=== PATIENT | male | born 1935 | race Caucasian/White ===

== ENCOUNTER 2020-06-18 10:45 | Inpatient (IN) | payer OTHER, MEDICARE, BC ==
[~2020-06-18] VITALS: Ht 185.4 cm; Wt 87.1 kg
[~2020-06-18 10:45] MED LIST: NO HOME MEDS
--- NOTE | 2020-06-18 11:35 | NUR ---
clarrified with anupam casanova shd we order acs protocol for pt for c/o chest pain as per charge anupam do ekg and then provider can decide when he see the pt.pt ekg already done and checked.
[2020-06-18 12:20] LABS: BASOPHILS # (AUTO) 0.1 X10'3 (0-0.2); BASOPHILS % (AUTO) 0.8 % (0-1); EOSINOPHILS # (AUTO) 0.1 X10'3 (0-0.9); EOSINOPHILS % (AUTO) 0.9 % (0-6); HEMATOCRIT 41.8 % (42.0-52.0); LYMPHOCYTES # (AUTO) 1.2 X10'3 (1.1-4.8); LYMPHOCYTES % (AUTO) 14.4 % (21-51); MEAN CORPUSCULAR HEMOGLOBIN 30.6 PG (27.0-31.0); MEAN CORPUSCULAR HGB CONC 33.6 g/dL (33.0-36.5); MEAN CORPUSCULAR VOLUME 90.9 FL (78-98); MEAN PLATELET VOLUME 8.2 FL (7.4-10.4); MONOCYTES # (AUTO) 0.8 X10'3 (0-0.9); MONOCYTES % (AUTO) 8.8 % (2-12); NEUTROPHILS # (AUTO) 6.5 X10'3 (1.8-7.7); NEUTROPHILS % (AUTO) 75.1 % (42-75); PLATELET COUNT 272 X10'3 (140-440); RED BLOOD COUNT 4.59 X10'6 (4.70-6.10); RED CELL DISTRIBUTION WIDTH 12.8 % (11.5-14.5); WHITE BLOOD COUNT 8.6 X10'3 (4.5-11.0)
[2020-06-18 12:40] LABS: ALANINE AMINOTRANSFERASE 33 U/L (12-78); ALBUMIN 3.8 G/DL (3.4-5.0); ALBUMIN/GLOBULIN RATIO 1.2 (1.1-1.5); ALKALINE PHOSPHATASE 60 IU/L (46-116); ANION GAP 7 (8-16); ASPARTATE AMINO TRANSFERASE 20 U/L (10-37); BILIRUBIN,TOTAL 0.4 MG/DL (0.1-1.0); BLOOD UREA NITROGEN 12 MG/DL (7-18); BUN/CREATININE RATIO 13.3 (5.4-32.0); CALCIUM 8.9 MG/DL (8.5-10.1); CHLORIDE 106 MMOL/L (99-107); GLUCOSE 98 MG/DL (70-104); POTASSIUM 4.5 MMOL/L (3.5-5.1); SODIUM 140 MMOL/L (135-145); TOTAL CARBON DIOXIDE 26.8 MMOL/L (24-32); eGFR 80 ML/MIN
[2020-06-18 12:45] LABS: CLARITY,URINE CLEAR (Clear); COLOR,URINE STRAW (Yellow); GLUCOSE, URINE NEGATIVE (Neg); KETONES,URINE NEGATIVE (Neg); LEUKOCYTE ESTERASE ,URINE NEGATIVE (Neg); NITRITES, URINE NEGATIVE (Neg); OCCULT BLOOD,URINE NEGATIVE (Neg); PROTEIN,URINE NEGATIVE (Neg); UA COLLECTION TYPE VOIDED; UROBILINOGEN,URINE 0.2 E.U/dL (0.2-1.0)
[2020-06-18] MEDS ORDERED: magnesium hydroxide 30ml (MOM) UD suspension PO PRN (13:20)
[2020-06-18] MEDS ORDERED: acetaminophen 325mg tablet PO PRN ×2 (13:20)
[2020-06-18] MEDS ORDERED: morphine 2 MG/ML inj. syringe IV PRN ×2 (13:20)
[2020-06-18] MEDS ORDERED: ondansetron/PF 4mg/2ml inj IV PRN (13:20)
[2020-06-18] MEDS ORDERED: mag hydrox/Alum hydrox/simeth 30ml oral suspension PO PRN (13:20)
--- NOTE | 2020-06-18 16:14 | NUR ---
PT RESTING IN BED WAITING FOR IN PT ROOM ASSISGNMENT ,NO DISTRESS NOTED ,WILL CONT TO MONITOR.
--- NOTE | 2020-06-18 17:59 | NUR ---
Patient arrived fro ED at 1755 took vitals 165/90 HR 67 O2 96 Temp 98.0 RR 16 Pain 0, Patient never been in hospital before and a little nervous. Will continue to monitor.
[2020-06-18 18:01] VITALS: BP 165/90
--- NOTE | 2020-06-18 18:38 | NUR ---
Problems reprioritized. Patient report given, questions answered & plan of care reviewed with Vianey.
[2020-06-18 22:00] VITALS: BP_SYST 108; BP_SYST 111; BP_DIAS 59; BP_DIAS 63; BP_DIAS 80
[2020-06-19 06:00] VITALS: BP 116/67
--- NOTE | 2020-06-19 06:42 | NUR ---
Patient in room ORTHO 4021. I have received report from Vianey ELIZABETH and had the opportunity to ask questions and assume patient care.
[2020-06-19 06:52] LABS: BASOPHILS # (AUTO) 0.1 X10'3 (0-0.2); BASOPHILS % (AUTO) 0.9 % (0-1); EOSINOPHILS # (AUTO) 0.2 X10'3 (0-0.9); HEMOGLOBIN 13.3 g/dl (14.0-17.9); LYMPHOCYTES # (AUTO) 1.8 X10'3 (1.1-4.8); LYMPHOCYTES % (AUTO) 23.6 % (21-51); MEAN CORPUSCULAR HGB CONC 34.1 g/dL (33.0-36.5); MEAN CORPUSCULAR VOLUME 90.8 FL (78-98); MEAN PLATELET VOLUME 8.6 FL (7.4-10.4); MONOCYTES # (AUTO) 0.8 X10'3 (0-0.9); MONOCYTES % (AUTO) 11.1 % (2-12); NEUTROPHILS # (AUTO) 4.6 X10'3 (1.8-7.7); NEUTROPHILS % (AUTO) 61.4 % (42-75); PLATELET COUNT 247 X10'3 (140-440); RED CELL DISTRIBUTION WIDTH 12.8 % (11.5-14.5); WHITE BLOOD COUNT 7.5 X10'3 (4.5-11.0)
[2020-06-19 07:09] LABS: ALBUMIN 3.3 G/DL (3.4-5.0); ANION GAP 8 (8-16); BLOOD UREA NITROGEN 12 MG/DL (7-18); CHLORIDE 107 MMOL/L (99-107); GLUCOSE 96 MG/DL (70-104); POTASSIUM 4.3 MMOL/L (3.5-5.1); SODIUM 142 MMOL/L (135-145); TOTAL CARBON DIOXIDE 27.4 MMOL/L (24-32); eGFR 71 ML/MIN
[2020-06-19 10:00] VITALS: BP 129/73
--- NOTE | 2020-06-19 12:34 | NUR ---
PAGER ID: [phone] MESSAGE: [phone] Bernabe Henderson The patient will need and order with the specific need send over to Dr. Severino office to mixing picker tender the heart monitor. Lor [id number]
[2020-06-19 13:48] VITALS: BP_SYST 125; BP_SYST 129; BP_SYST 140; BP_DIAS 69; BP_DIAS 73; BP_DIAS 76
== END 2020-06-19 15:00 | disposition home or self-care (01) | DRG 312 ==
LOC: ER 10:46 → ED HOLD 13:16 → ORTHO 4S 18:40
PROVIDERS: ADMIT Internal Medicine; ATTEND Internal Medicine
DX: R55 Syncope and collapse (principal); R07.9 Chest pain, unspecified
CPT/HCPCS: 36415; 71045; 80048; 80053; 81003; 82948; 83880; 85025; 87081; 93005; 99285; G0378

== ENCOUNTER 2020-07-10 17:04 | Emergency (ER) | payer OTHER, MEDICARE, BC ==
[~2020-07-10] VITALS: Ht 188 cm; Wt 97.5 kg
[2020-07-10 17:50] VITALS: BP 108/73
[2020-07-10 18:30] LABS: RED BLOOD COUNT 4.73 X10'6 (4.70-6.10)
[2020-07-10 18:31] LABS: BASOPHILS % (AUTO) 0.5 % (0-1); EOSINOPHILS # (AUTO) 0.1 X10'3 (0-0.9); EOSINOPHILS % (AUTO) 1.4 % (0-6); HEMOGLOBIN 14.5 g/dl (14.0-17.9); LYMPHOCYTES # (AUTO) 1.4 X10'3 (1.1-4.8); LYMPHOCYTES % (AUTO) 15.2 % (21-51); MEAN CORPUSCULAR HEMOGLOBIN 30.7 PG (27.0-31.0); MEAN CORPUSCULAR HGB CONC 33.8 g/dL (33.0-36.5); MEAN CORPUSCULAR VOLUME 90.9 FL (78-98); MEAN PLATELET VOLUME 8.8 FL (7.4-10.4); MONOCYTES # (AUTO) 0.9 X10'3 (0-0.9); MONOCYTES % (AUTO) 9.7 % (2-12); NEUTROPHILS # (AUTO) 6.7 X10'3 (1.8-7.7); NEUTROPHILS % (AUTO) 73.2 % (42-75); PLATELET COUNT 296 X10'3 (140-440); WHITE BLOOD COUNT 9.2 X10'3 (4.5-11.0)
[2020-07-10 18:32] LABS: ALANINE AMINOTRANSFERASE 28 U/L (12-78); ALBUMIN 4.1 G/DL (3.4-5.0); ALBUMIN/GLOBULIN RATIO 1.2 (1.1-1.5); ALKALINE PHOSPHATASE 65 IU/L (46-116); ANION GAP 8 (8-16); ASPARTATE AMINO TRANSFERASE 20 U/L (10-37); BILIRUBIN,TOTAL 0.4 MG/DL (0.1-1.0); BLOOD UREA NITROGEN 15 MG/DL (7-18); CALCIUM 9.4 MG/DL (8.5-10.1); CHLORIDE 108 MMOL/L (99-107); CREATININE 0.94 MG/DL (0.60-1.10); GLUCOSE 107 MG/DL (70-104); POTASSIUM 4.1 MMOL/L (3.5-5.1); SODIUM 143 MMOL/L (135-145); TOTAL CARBON DIOXIDE 26.6 MMOL/L (24-32); TOTAL PROTEIN 7.4 G/DL (6.4-8.2); eGFR 76 ML/MIN
[2020-07-10 18:41] LABS: MAGNESIUM 2.4 MG/DL (1.5-2.4)
== END 2020-07-10 19:48 | disposition home or self-care (01) ==
LOC: ER 17:04
DX: R55 Syncope and collapse (principal); R07.89 Other chest pain; Z86.69 Personal history of other diseases of the nervous system and sense organs; Z98.890 Other specified postprocedural states
CPT/HCPCS: 36415; 71045; 80053; 83735; 83880; 84484; 85025; 93005; 99285

== ENCOUNTER 2020-11-30 15:29 | Observation (INO) | payer OTHER, MEDICARE, BC ==
[2020-11-30] VITALS (8 sets, daily range): BP systolic 113–139; BP diastolic 47–85
[~2020-11-30 15:29] MED LIST changes: +ASPI-1265 PO; -NO HOME MEDS
[2020-11-30] MEDS ORDERED: ceFAZolin 2gm in dextrose, iso 50 ML IV ONE (17:04)
[2020-11-30] MEDS ORDERED: midazolam 2 mg/2 ml injection ONE ×2 (17:04→17:19)
[2020-11-30] MEDS ORDERED: ceFAZolin 1000mg inj ONE (17:04)
[2020-11-30] MEDS ORDERED: LIDOcaine 1% W/epiNEPHrine 1:100,000 20ml vial ONE ×2 (17:04→17:05)
[2020-11-30] MEDS ORDERED: fentaNYL/PF 50MCG/1 ML 2ML syringe ONE (17:04)
--- NOTE | 2020-11-30 21:58 | NUR ---
SPOKE WITH Billy CANNON, NEW ORDERS RECEIVED FOR PT TO BE FULL CODE.
[2020-12-01 01:30] VITALS: BP 112/60
[2020-12-01 02:30] VITALS: BP 124/67
[2020-12-01 03:30] VITALS: BP 126/67
[2020-12-01 06:00] VITALS: BP 117/61
[2020-12-01] MEDS ORDERED: ceFAZolin/D5W- 1GM premix 50 ML IV ONE (08:55)
[2020-12-01] MEDS ORDERED: CEPH250T PO (09:06)
--- NOTE | 2020-12-01 11:00 | NUR ---
Patient given IV antibiotic and discharge instructions. Verbalized understanding. Medication reconciliation done and forwarded to patient's pharmacy. Patient left unit at approximately 1050 with all belongings. No problems noted at that time.
== END 2020-12-01 10:50 | disposition home or self-care (01) ==
LOC: INTOOBSV 15:29 → MED 3N 15:29
PROVIDERS: ADMIT Internal Medicine Interventional Cardiology; ATTEND Internal Medicine Interventional Cardiology
DX: T82.110A Breakdown (mechanical) of cardiac electrode, initial encounter (principal); I44.2 Atrioventricular block, complete
CPT/HCPCS: 33215; 33216; 33234; 87081; 96365; C1898; G0378; J0690; J2250; J3010; 99152; 99153; A4565; A4620; A6258

== ENCOUNTER 2023-08-04 10:38 | Day surgery (SDC) | payer OTHER ==
[2023-07-31 09:24] LABS: BASOPHILS # (AUTO) 0.1 X10'3 (0-0.2); BASOPHILS % (AUTO) 0.9 % (0-1); EOSINOPHILS # (AUTO) 0.1 X10'3 (0-0.9); EOSINOPHILS % (AUTO) 2.1 % (0-6); HEMATOCRIT 41.9 % (42.0-52.0); HEMOGLOBIN 14.2 g/dl (14.0-17.9); LYMPHOCYTES # (AUTO) 1.1 X10'3 (1.1-4.8); LYMPHOCYTES % (AUTO) 15.2 % (21-51); MEAN CORPUSCULAR HEMOGLOBIN 31.1 PG (27.0-31.0); MEAN CORPUSCULAR HGB CONC 33.9 g/dL (33.0-36.5); MEAN CORPUSCULAR VOLUME 91.7 FL (78-98); MEAN PLATELET VOLUME 8.4 FL (7.4-10.4); MONOCYTES # (AUTO) 0.8 X10'3 (0-0.9); MONOCYTES % (AUTO) 10.7 % (2-12); NEUTROPHILS # (AUTO) 5.1 X10'3 (1.8-7.7); NEUTROPHILS % (AUTO) 71.1 % (42-75); PLATELET COUNT 247 X10'3 (140-440); RED BLOOD COUNT 4.57 X10'6 (4.70-6.10); RED CELL DISTRIBUTION WIDTH 12.9 % (11.5-14.5); WHITE BLOOD COUNT 7.1 X10'3 (4.5-11.0)
[2023-07-31 09:36] LABS: APTT 27 SECONDS (22-32); INR 1.1 INR; PROTHROMBIN TIME 11.3 SECONDS (9.0-12.0)
[2023-07-31 09:42] LABS: ALBUMIN 3.8 G/DL (3.4-5.0); ANION GAP 5 (8-16); BLOOD UREA NITROGEN 15 MG/DL (7-18); CALCIUM 9.2 MG/DL (8.5-10.1); CHLORIDE 107 MMOL/L (99-107); CHOL/HDL RATIO 2.1 (0.00-4.99); CHOLESTEROL 140 MG/DL (0-200); CREATININE 0.94 MG/DL (0.60-1.10); GLUCOSE 117 MG/DL (70-104); HDL CHOLESTEROL 67 MG/DL (35-60); LDL CHOLESTEROL 63 MG/DL (50-100); POTASSIUM 4.5 MMOL/L (3.5-5.1); SODIUM 141 MMOL/L (135-145); TOTAL CARBON DIOXIDE 28.8 MMOL/L (24-32); TRIGLYCERIDES 41 MG/DL (20-135); eGFR 76 ML/MIN
[2023-08-04] VITALS (8 sets, daily range): BP systolic 113–149; BP diastolic 63–98; PULSE 62–73; RESP 14–17; TEMP 97.9; O2SAT 95–99
[~2023-08-04] VITALS: Ht 188 cm; Wt 86.4 kg
[2023-08-04] MEDS ORDERED: verapamil 2.5 mg/ml inj IV ONE (11:00)
[2023-08-04] MEDS ORDERED: LIDOcaine 1% (10mg/ml) 2ml vial ONE (11:00)
[2023-08-04] MEDS ORDERED: heparin 1,000unit/ml 10ml vial 10 ML ONE (11:00)
[2023-08-04] MEDS ORDERED: fentaNYL/PF 50MCG/1 ML 2ML syringe ONE (11:00)
[2023-08-04] MEDS ORDERED: ROSU5TAB PO (11:00)
[2023-08-04] MEDS ORDERED: midazolam 1 mg/ML 2ml injection ONE (11:00)
[2023-08-04] MEDS ORDERED: nitroGLYCERIN 500mcg/5mL D5W 5 ML IV ONE (11:01)
[2023-08-04] MEDS ORDERED: iohexol 350MG/ML 100ml bottle IV ONE (11:01)
[2023-08-04] MEDS ORDERED: diphenhydrAMINE 25mg capsule PO PRN (11:05)
[2023-08-04] MEDS ORDERED: normal saline 1,000 ML IV SCH (11:05)
[2023-08-04] MEDS ORDERED: LORazepam 0.5 MG tablet PO PRN (11:05)
[2023-08-04] MEDS ORDERED: LIDOcaine 1% (10mg/ml)w/preservative inj. 20ml MDV ONE (13:41)
[2023-08-04] MEDS ORDERED: iohexol 350 MG/ML 50ML vial IV ONE ×2 (13:54→14:11)
[2023-08-04 13:55] LABS: ISTAT HGB ART 12.9 g/dl (14.0-17.9); ISTAT Hct ART 38 %PCV (42-52); ISTAT O2 SATURATION ARTERIAL 93 % (95-98); ISTAT SOURCE ART
[2023-08-04 14:35] LABS: ISTAT HGB MIX 12.2 g/dl (14.0-17.9); ISTAT Hct MIX 36 %PCV (42-52); ISTAT O2 SATURATION MIX VENOUS 73 % (60-80); ISTAT SOURCE VEN
== END 2023-08-04 16:35 | disposition home or self-care (01) ==
LOC: SSTAY O 10:38
PROVIDERS: ATTEND Student in an Organized Health Care Education/Training Program
DX: I35.0 Nonrheumatic aortic (valve) stenosis (principal); I25.10 Atherosclerotic heart disease of native coronary artery without angina pectoris; E78.5 Hyperlipidemia, unspecified; I10 Essential (primary) hypertension; I65.23 Occlusion and stenosis of bilateral carotid arteries; Z95.0 Presence of cardiac pacemaker
CPT/HCPCS: 36415; 80048; 80061; 82803; 85014; 85025; 85610; 85730; 93005; 93456; 93571; 99152; 99153; J1644; J2250; J3010; J3490; J7030; Q9967; A6258; A6449; C1751; C1769; C1894

== ENCOUNTER 2023-10-16 10:25 | Outpatient (CLI) | payer OTHER ==
[~2023-10-16 10:25] MED LIST changes: -ASPI-1265 PO; +ROSU5TAB PO
[2023-10-16 11:05] LABS: BASOPHILS # (AUTO) 0.1 X10'3 (0-0.2); BASOPHILS % (AUTO) 0.8 % (0-1); EOSINOPHILS # (AUTO) 0.3 X10'3 (0-0.9); EOSINOPHILS % (AUTO) 2.9 % (0-6); HEMATOCRIT 43.2 % (42.0-52.0); HEMOGLOBIN 14.5 g/dl (14.0-17.9); LYMPHOCYTES # (AUTO) 1.3 X10'3 (1.1-4.8); LYMPHOCYTES % (AUTO) 13.5 % (21-51); MEAN CORPUSCULAR HEMOGLOBIN 30.8 PG (27.0-31.0); MEAN CORPUSCULAR HGB CONC 33.5 g/dL (33.0-36.5); MEAN PLATELET VOLUME 8.2 FL (7.4-10.4); MONOCYTES % (AUTO) 10.3 % (2-12); NEUTROPHILS # (AUTO) 6.9 X10'3 (1.8-7.7); NEUTROPHILS % (AUTO) 72.5 % (42-75); PLATELET COUNT 285 X10'3 (140-440); RED CELL DISTRIBUTION WIDTH 13.7 % (11.5-14.5); WHITE BLOOD COUNT 9.6 X10'3 (4.5-11.0)
[2023-10-16 11:13] LABS: APTT 27 SECONDS (22-32); INR 1.1 INR; PROTHROMBIN TIME 11.4 SECONDS (9.0-12.0)
[2023-10-16 11:27] LABS: ALANINE AMINOTRANSFERASE 34 U/L (12-78); ALBUMIN 3.8 G/DL (3.4-5.0); ALBUMIN/GLOBULIN RATIO 1.1 (1.1-1.5); ALKALINE PHOSPHATASE 62 IU/L (46-116); ANION GAP 6 (8-16); ASPARTATE AMINO TRANSFERASE 24 U/L (10-37); BILIRUBIN,TOTAL 0.5 MG/DL (0.1-1.0); BLOOD UREA NITROGEN 14 MG/DL (7-18); BUN/CREATININE RATIO 15.9 (10.0-20.0); CALCIUM 8.9 MG/DL (8.5-10.1); CHLORIDE 107 MMOL/L (99-107); CREATININE 0.88 MG/DL (0.60-1.10); GLUCOSE 106 MG/DL (70-104); POTASSIUM 4.5 MMOL/L (3.5-5.1); PRO BRAIN NATRIURETIC PEPTIDE 768 PG/ML (0-450); SODIUM 141 MMOL/L (135-145); TOTAL CARBON DIOXIDE 28.3 MMOL/L (24-32); TOTAL PROTEIN 7.3 G/DL (6.4-8.2); eGFR 82 ML/MIN
[2023-10-16] MEDS ORDERED: IODIXANOL 320 MG/ML INFUS..BTL 100ML IV ONE (11:34)
== END 2023-10-16 23:59 | disposition home or self-care (01) ==
LOC: RAD 10:25
PROVIDERS: ATTEND Internal Medicine Cardiovascular Disease
DX: N20.0 Calculus of kidney (principal); N21.0 Calculus in bladder; I35.0 Nonrheumatic aortic (valve) stenosis; R06.02 Shortness of breath; I65.29 Occlusion and stenosis of unspecified carotid artery; I72.8 Aneurysm of other specified arteries; I70.0 Atherosclerosis of aorta
CPT/HCPCS: 36415; 71046; 71275; 74174; 75574; 80053; 83880; 85025; 85610; 85730; 94010; 94727; 94729; J3490; Q9967